=== PATIENT | female | born 1955 | race Two or more races ===

== ENCOUNTER → 2017-10-11 10:31 | Outpatient (CLI) | payer MEDICAID ==
[2015-05-01 06:11] VITALS: BMI 29.7
[~2017-10-11 10:31] MED LIST: MULTIPLE VITAMI1 TA1 PO
== END | disposition home or self-care (01) ==
LOC: D.CT 10:31
DX: R93.8 Abnormal findings on diagnostic imaging of other specified body structures (principal)